=== PATIENT | male | born 1985 ===

== ENCOUNTER 2016-07-24 22:30 | Emergency (ER) | payer SELFPAY ==
[2016-07-25] MEDS ORDERED: HYDROXYZINE HCL 25 MG TABLET ONE (00:24)
[2016-07-25] MEDS ORDERED: PREDNISONE 20 MG TABLET ONE (00:24)
== END 2016-07-25 00:46 | disposition home or self-care (01) ==
LOC: ED 22:30
DX: L50.9 Urticaria, unspecified (principal); F17.210 Nicotine dependence, cigarettes, uncomplicated
CPT/HCPCS: 99283 ×2; J3410; J7512